=== PATIENT | female | born 1955 | race Caucasian/White ===

== ENCOUNTER 2017-07-19 10:30 | Emergency (ER) | payer OTHER ==
[~2017-07-19] VITALS: Ht 157.5 cm; Wt 52.0 kg
[2017-07-19 10:37] VITALS: Ht 157.5 cm; Wt 52.0 kg
[2017-07-19 13:00] VITALS: TEMP 98.6
[2017-07-19] MEDS ORDERED: SOD CHLORIDE 0.9% 1,000 ML IV STA (13:46)
[2017-07-19] MEDS ORDERED: ONDANSETRON 4 MG INJ IV STA (13:46)
[2017-07-19] MEDS ORDERED: morphine 4 MG/ML VIAL IV STA (13:46)
--- NOTE | 2017-07-19 13:48 | ERD ---
ER Documentation Chief Complaint Date/Time DATE: 07/19/17 TIME: 13:47 Chief Complaint HEADACHE AND ABDOMINAL PAIN X 3 DAYS, HX MIGRAINES, HPI 62-year-old female presenting with 3 days of upper abdominal pain. She is unable to localize the pain but states that she mostly feels it in the middle of her upper quadrants radiating to the back bilaterally. She denies any chest pain, shortness of breath, nausea, vomiting, fever, chills but has decreased p.o. intake as food makes her pain somewhat worse. She denies any hematuria or dysuria. No constipation or diarrhea. She does endorse headaches that are chronic for her but exacerbated by her abdominal pain. She has had a diagnosis of gastritis in the past and is on omeprazole. She has a sectionizer, Dr. Cook, who recently ordered a colonoscopy for her but no endoscopy. ROS All systems reviewed and are negative except as per history of present illness. Medications Home Meds Active Scripts Famotidine* (Pepcid*) 20 Mg Tablet, 20 MG PO BID for 14 Days, TAB Prov:CARLOS YAN MD 07/19/17 Metoclopramide* (Reglan*) 10 Mg Tablet, 10 MG PO Q6 Y for NAUSEA AND/OR VOMITING , #10 TAB Prov:CARLOS YAN MD 07/19/17 Allergies Allergies: Coded Allergies: No Known Allergy (Unverified , 07/19/17) PMhx/Soc Hx Miscellaneous Medical Probl: Yes (Hypothyroidism, gastritis) FmHx Family History: No diabetes Physical Exam Vitals Vital Signs Date Time Temp Pulse Resp B/P Pulse Ox O2 Delivery O2 Flow Rate FiO2 07/19/17 15:30 76 18 135/84 98 Room Air 07/19/17 13:00 98.6 78 16 136/84 98 Room Air 07/19/17 10:37 98.4 86 18 144/76 98 Physical Exam Const: No apparent distress Head: Atraumatic Eyes: Normal Conjunctiva ENT: Normal External Ears, Nose and Mouth. Neck: Full range of motion..~ No meningismus. Resp: Clear to auscultation bilaterally Cardio: Regular rate and rhythm, no murmurs Abd: Soft, non tender, non distended. Negative Tineo sign. No palpable masses. Normal bowel sounds Skin: No petechiae or rashes Back: No midline or flank tenderness Ext: No cyanosis, or edema Neur: Awake and alert Psych: Normal Mood and Affect Result Diagram: 07/19/17 1350 07/19/17 1350 Results 24 hrs Laboratory Tests Test 07/19/17 13:50 White Blood Count 10.010^3/ul Red Blood Count 4.0110^6/ul Hemoglobin 13.3g/dl Hematocrit 37.2% Mean Corpuscular Volume 92.8fl Mean Corpuscular Hemoglobin 33.2pg Mean Corpuscular Hemoglobin Concent 35.8g/dl Red Cell Distribution Width 11.4% Platelet Count 28690^3/UL Mean Platelet Volume 9.5fl Neutrophils % 81.2% Lymphocytes % 14.7% Monocytes % 3.1% Eosinophils % 0.1% Basophils % 0.5% Nucleated Red Blood Cells % 0.0/100WBC Neutrophils # (Manual) 810^3/ul Lymphocytes # 1.510^3/ul Monocytes # 0.310^3/ul Eosinophils # 0.010^3/ul Basophils # 0.110^3/ul Nucleated Red Blood Cells # 0.010^3/ul Urine Color YELLOW Urine Clarity CLEAR Urine pH 8.0 Urine Specific [place] 1.015 Urine Ketones 1+mg/dL Urine Nitrite NEGATIVEmg/dL Urine Bilirubin NEGATIVEmg/dL Urine Urobilinogen NEGATIVEmg/dL Urine Leukocyte Esterase NEGATIVELeu/ul Urine Hemoglobin NEGATIVEmg/dL Urine Glucose NEGATIVEmg/dL Urine Total Protein NEGATIVEmg/dl Sodium Level 141mmol/L Potassium Level 3.8mmol/L Chloride Level 100mmol/L Carbon Dioxide Level 27mmol/L Anion Gap 18 Blood Urea Nitrogen 14mg/dl Creatinine 0.65mg/dl Glucose Level 120mg/dl Calcium Level 10.2mg/dl Total Bilirubin 0.2mg/dl Direct Bilirubin 0.00mg/dl Indirect Bilirubin 0.2mg/dl Aspartate Amino Transf (AST/SGOT) 44IU/L Alanine Aminotransferase (ALT/SGPT) 59IU/L Alkaline Phosphatase 94IU/L Total Protein 9.7g/dl Albumin 5.4g/dl Globulin 4.30g/dl Albumin/Globulin Ratio 1.25 Lipase 93U/L Current Medications Medications (Trade) Dose Ordered Sig/Jemma Route PRN Reason Start Time Stop Time Status Last Admin Dose Admin Sodium Chloride (NS) 1,000 ml @ 1,000 mls/hr Q1H STAT IV 07/19/17 13:46 07/19/17 14:45 DC 07/19/17 13:57 Morphine Sulfate (morphine) 4 mg ONCE STAT IV 07/19/17 13:46 07/19/17 13:49 DC 07/19/17 13:57 Ondansetron HCl (Zofran Inj) 4 mg ONCE STAT IV 07/19/17 13:46 07/19/17 13:49 DC 07/19/17 13:57 Famotidine (Pepcid Iv) 20 mg ONCE ONCE IV 07/19/17 14:00 07/19/17 14:01 DC 07/19/17 13:57 Miscellaneous Medication (Gi Cocktail (2)) 40 ml ONCE STAT PO 07/19/17 14:17 07/19/17 14:19 DC 07/19/17 14:35 Metoclopramide HCl (Reglan) 10 mg ONCE ONCE IV 07/19/17 14:30 07/19/17 14:31 DC 07/19/17 14:35 Procedures/MDM EMERGENT LABS AND DIAGNOSTIC STUDIES: Lab Results above were reviewed and interpreted by me. CBC: no anemia or evidence of infection CMP: No evidence of electrolyte abnormality, renal failure, hypoglycemia, liver failure, or biliary obstruction Lipase: no evidence of pancreatitis UA: no evidence of infection 12-lead EKG was interpreted by Ramana Yan MD: Normal Sinus Rhythm Normal axis Normal intervals No acute ST or T wave changes suggestive of acute ischemia or STEMI. Radiology Results as interpreted by Radiology below were reviewed by Chandler Yan MD: Chest x-ray shows no acute abnormalities Initial Nursing notes reviewed. Previous Medical Records requested via the Electronic Health Record. EMERGENCY DEPARTMENT COURSE / MEDICAL DECISION MAKING: Patient presents with upper abdominal pain with normal vitals and abdominal exam. She was treated with IV fluids, Reglan V, Gi cocktail, and pepcid with improvement of her abdominal pain. Considered biliary colic, biliary obstruction , acute cholecystitis, pancreatitis, hepatitis, lower lobe pneumonia, colitis, cardiac pathology, aortic dissection, ureterolithiasis, pyelonephritis. Labs were ordered to evaluate for above and were normal. Chest Xray ordered to evaluate for pneumonia and was read as normal by radiology. I do not believe imaging is necessary emergently at this time as patient has a benign exam with normal labs. I believe the patient is stable for discharge with continued outpatient follow up. Advised to follow up with Dr. Cook to discuss possibly scheduling an endoscopy. Patient agreeable to discharge plan. Return precautions discussed. Departure Diagnosis: Primary Impression: Abdominal pain Abdominal location: upper abdomen, unspecified Qualified Code: R10.10 - Pain of upper abdomen Additional Impression: Headache Headache type: unspecified Headache chronicity pattern: episodic headache Intractability: not intractable Qualified Code: R51 - Nonintractable episodic headache, unspecified headache type Condition: Stable CARLOS YAN MD Jul 19, 2017 13:47
[2017-07-19] MEDS ORDERED: FAMOTIDINE 20 MG INJ IV ONE (14:00)
[2017-07-19 14:05] LABS: BASOPHIL # 0.1 10^3/ul (0.0-0.1); BASOPHILS % 0.5 % (0.0-2.0); EOSINOPHILS % 0.1 % (0.0-7.0); HEMATOCRIT 37.2 % (37.0-47.0); HEMOGLOBIN 13.3 g/dl (12.0-16.0); LYMPHOCYTES # 1.5 10^3/ul (0.8-2.9); LYMPHOCYTES % 14.7 % (15.0-51.0); MEAN CORPUSCULAR HEMOGLOBIN 33.2 pg (29.0-33.0); MEAN CORPUSCULAR HGB CONC 35.8 g/dl (32.0-37.0); MEAN CORPUSCULAR VOLUME 92.8 fl (82.0-101.0); MEAN PLATELET VOLUME 9.5 fl (7.4-10.4); MONOCYTE # 0.3 10^3/ul (0.3-0.9); MONOCYTES % 3.1 % (0.0-11.0); NEUTROPHILS % 81.2 % (39.0-77.0); PLATELET COUNT 396 10^3/UL (140-415); RED BLOOD COUNT 4.01 10^6/ul (4.20-5.40); RED CELL DISTRIBUTION WIDTH 11.4 % (11.5-14.5)
[2017-07-19 14:07] LABS: ADD UMIC NO; UR ASCORBIC ACID NEGATIVE (NEGATIVE); UR BILIRUBIN (Dip) NEGATIVE (NEGATIVE); UR BLOOD (Dip) NEGATIVE (NEGATIVE); UR CLARITY CLEAR (CLEAR); UR COLOR YELLOW (YELLOW); UR GLUCOSE (Dip) NEGATIVE (NEGATIVE); UR KETONES (Dip) 1+ mg/dL (NEGATIVE); UR LEUKOCYTE ESTERASE (Dip) NEGATIVE Leu/ul (NEGATIVE); UR NITRITE (Dip) NEGATIVE (NEGATIVE); UR SPECIFIC GRAVITY (Dip) 1.015 (1.003-1.030); UR TOTAL PROTEIN (Dip) NEGATIVE (NEGATIVE); UR UROBILINOGEN (Dip) NEGATIVE (NEGATIVE)
[2017-07-19] MEDS ORDERED: LIDOCAINE/MYLANTA 40 ML BTL PO STA (14:17)
[2017-07-19 14:21] LABS: ALBUMIN 5.4 g/dl (3.3-4.9); ALBUMIN/GLOBULIN RATIO 1.25; BILIRUBIN,INDIRECT 0.2 mg/dl (0-1.1); BILIRUBIN,TOTAL 0.2 mg/dl (0.2-1.3); CALCIUM 10.2 mg/dl (8.4-10.2); CREATININE 0.65 mg/dl (0.44-1.00); POTASSIUM 3.8 mmol/L (3.5-5.1); TOTAL PROTEIN 9.7 g/dl (6.1-8.1)
--- NOTE | 2017-07-19 14:21 | RADRPT ---
PROCEDURE: Chest Radiograph. CLINICAL INDICATION: Chest or abdominal pain TECHNIQUE: Single frontal chest radiograph. COMPARISON: None available FINDINGS: The cardiomediastinal silhouette is within normal limits. There are a few calcifications scattered throughout the right lung. No infiltrate or effusion is seen. The bones are intact. IMPRESSION: 1. No evidence of acute cardiopulmonary disease. 2. Old granulomatous disease. RPTAT: KK .Ron Kahn MD, MD Date Time Electronically viewed and signed by .Ron Kahn MD, on 07/19/2017 14:20 .B/
[2017-07-19] MEDS ORDERED: METOCLOPRAMIDE 10 MG INJ IV ONE (14:30)
[2017-07-19] MEDS ORDERED: METO10TA92 PO (14:44)
[2017-07-19] MEDS ORDERED: FAMO-96 PO (14:44)
[2017-07-19 15:30] VITALS: BP 135/84; PULSE 76; RESP 18
== END 2017-07-19 15:31 | disposition home or self-care (01) ==
LOC: E/R 10:30
DX: R10.10 Upper abdominal pain, unspecified (principal); R07.9 Chest pain, unspecified; E03.9 Hypothyroidism, unspecified
CPT/HCPCS: 36415; 71010; 80053; 81003; 83690; 85025; 93005; 96374; 96375; J2270; J2405; J2765; J7030; Z7502; Z7610

== ENCOUNTER 2017-07-26 10:32 | Day surgery (SDC) | payer OTHER ==
[~2017-07-26] VITALS: Ht 154.9 cm; Wt 53.0 kg
[~2017-07-26 10:32] MED LIST: FAMO-96 PO; METO10TA92 PO
[2017-07-26 11:04] VITALS: Ht 154.9 cm; Wt 53.0 kg
[2017-07-26] MEDS ORDERED: LEVOTHYROXINE (11:18)
[2017-07-26] MEDS ORDERED: GEMFIBROZIL PO (11:18)
[2017-07-26 11:33] VITALS: BP 140/77; PULSE 80; RESP 18
[2017-07-26] MEDS ORDERED: FENTAnyl 50 MCG/ML VIAL ONE (12:15)
[2017-07-26] MEDS ORDERED: MIDAZOLAM 1 MG/ML 2 ML INJ ONE ×2 (12:15)
--- NOTE | 2017-07-26 12:22 | OPPN ---
Date/Time of Note Date/Time of Note DATE: 07/26/17 TIME: 12:13 Proc Note GI Procedure date: Jul 26, 2017 Pre-procedure Diagnosis Screening colonoscopy rule out colon polyp Post-procedure Diagnosis About 8 mm lobulated non-pedunculated polyp noted in the proximal ascending colon Diverticulosis External hemorrhoid Operation Performed Colonoscopy \ Surgeon: SELWYN RESENDEZ MD Anesthesia Type: moderate sedation Estimated blood loss: none Transfusion Required: no Specimens Polyp Complications: no Complications none Pt Condition post procedure: stable Indications Cleaning colonoscopy rule out colon polyps Operative\Procedure Findings colonoscopy and biopsy Procedure Description Informed written consent is obtained patient was ostial in the left lateral side 3 mg Versed 50 mcg of fentanyl was given as intravenous anesthesia Become somnolent Olympus video colonoscope was introduced into the rectum Was advanced all the way to the C Minimal degree of diverticulosis was noted all along the colon No bleeding noted 8 mm lobulated non-pedunculated polyp was noted in the proximal descending colon . this polyp was removed in multiple pieces However entered polyp cannot be removed tattooing performed by using the spot. On the way out further evaluation was carried out no additional abnormalities detected except minimal hemorrhoids Wait for the pathology report cc SELWYN Lamb MD Jul 26, 2017 12:22
[2017-07-26 12:50] VITALS: BP 111/70; PULSE 66; RESP 14
== END 2017-07-26 16:31 | disposition home or self-care (01) ==
LOC: GIL 10:32
PROVIDERS: ATTEND Internal Medicine Gastroenterology
DX: Z12.11 Encounter for screening for malignant neoplasm of colon (principal); D12.4 Benign neoplasm of descending colon; K57.90 Diverticulosis of intestine, part unspecified, without perforation or abscess without bleeding; K64.4 Residual hemorrhoidal skin tags
CPT/HCPCS: 45380; 88305; J2250; J3010; Z7610

== ENCOUNTER 2017-09-29 06:34 | Day surgery (SDC) | payer OTHER ==
[~2017-09-29] VITALS: Ht 154.9 cm; Wt 52.7 kg
[~2017-09-29 06:34] MED LIST changes: -FAMO-96 PO; +GEMFIBROZIL PO; +LEVOTHYROXINE; -METO10TA92 PO
[2017-09-29] MEDS ORDERED: OMEPRAZOLE (07:15)
[2017-09-29] MEDS ORDERED: LIDOCAINE 4% SOLUTION 50 ML BTL ONE (07:42)
[2017-09-29] MEDS ORDERED: FENTAnyl 50 MCG/ML VIAL ONE (08:06)
[2017-09-29] MEDS ORDERED: MIDAZOLAM 1 MG/ML 2 ML INJ ONE ×2 (08:06)
[2017-09-29 08:25] VITALS: BP 101/66; RESP 14
--- NOTE | 2017-09-29 08:46 | OPPN ---
Date/Time of Note Date/Time of Note DATE: 09/29/17 TIME: 08:44 Proc Note GI Procedure Date 09/29/17 Pre-procedure Diagnosis r/o pud Post-procedure Diagnosis erosive gastritis Procedure Performed: Endoscopy Surgeon see signature line Client Consultant none Anesthesia Type: moderate sedation Tourniquet Time none EBL none Transfusion required none Biopsy 1: gastric bx done Grafts/Implants none Tubes/Drains none Complication(s) none Procedure Description egd showed erosive gastritis gerd SELWYN RESENDEZ MD Sep 29, 2017 08:45
--- NOTE | 2017-09-29 08:46 | OPPN ---
Date/Time of Note Date/Time of Note DATE: 09/29/17 TIME: 08:44 Proc Note GI Procedure Date 09/29/17 Pre-procedure Diagnosis r/o pud Post-procedure Diagnosis erosive gastritis Procedure Performed: Endoscopy Surgeon see signature line [employer] none Anesthesia Type: moderate sedation Tourniquet Time none EBL none Transfusion required none Biopsy 1: gastric bx done Grafts/Implants none Tubes/Drains none Complication(s) none Procedure Description egd showed erosive gastritis gerd SELWYN RESENDEZ MD Sep 29, 2017 08:45
--- NOTE | 2017-09-30 04:51 | GILP ---
DATE OF PROCEDURE: PROCEDURE: Esophagogastroduodenoscopy. PREOPERATIVE DIAGNOSIS: Patient presenting with history of chronic abdominal discomfort, indigestio n, unresponsive to routine therapy, rule out peptic ulcer disease, gastritis. POSTOPERATIVE DIAGNOSES: 1. Erosive gastritis of the antrum. 2. Mild reflux esophagitis. DESCRIPTION OF PROCEDURE: After the informed written consent was obtained, the patient was asked to lie on the left lateral side. Three mg Versed and 50 mcg of fentanyl was given as intravenous anes thesia. When the patient became somnolent, the Olympus video upper endoscope was introduced into the orophar ynx, then into the esophagus. Esophagus appeared to show minimal erythema over the GE junction, ind icating mild reflux esophagitis. Scope at this time was advanced into the stomach. Multiple erosio ns of the stomach were noted, in the antrum. Biopsy was done from the antrum, the lesser curvature and the fundus to rule out H. pylori infection. Scope at this time was advanced into the duodenum. Entire duodenum appeared perfectly normal with no mucosal abnormality. Endoscope at this time was withdrawn. On the way out, no additional abnormalities detected and the procedure was terminated. PLAN: Recommend proton pump inhibitor therapy. Dictated By: SELWYN WILKINSON/JOHANN Conf#: [id number] DID#: [id number]
== END 2017-09-29 10:54 | disposition home or self-care (01) ==
LOC: GIL 06:34
PROVIDERS: ATTEND Internal Medicine Gastroenterology
DX: K29.30 Chronic superficial gastritis without bleeding (principal); K21.0 Gastro-esophageal reflux disease with esophagitis; I10 Essential (primary) hypertension
CPT/HCPCS: 43239; 88305; 88312; J2250; J3010; Z7610